=== PATIENT | male | born 1955 | race Native Hawaiian/Other Pacific Islander ===

== ENCOUNTER → 2016-07-14 | Outpatient (CLI) | payer BC ==
--- NOTE | 2016-07-14 09:52 | MRI ---
Study: MRI of the Left Shoulder. Indication: PAIN Technique: Multiplanar, multi sequence MRI of the left shoulder was obtained without intravenous contrast. Comparison: Radiographs October 14, 2015. Findings: Moderate AC joint osteoarthritis with mild contouring underlying supraspinatus muscle belly. Type 1 acromion with mild lateral downsloping. Small volume subacromial/subdeltoid bursal fluid. Irregular full-thickness tearing anterior 2/3 supraspinatus tendon noted with high-grade articular side tearing of the posterior 3rd as well as the anterior half of the infraspinatus tendon at the critical zone. In its entirety the tearing extends over an AP length of 34 mm and a transverse width by approximately 18 mm. Torn tendon fibers are medially retracted by up to 20 mm. Subscapularis tendinosis noted with intermediate-grade bursal/interstitial tearing of the superior leading edge. Teres minor tendon intact. Mild atrophy supraspinatus muscle belly. No fatty infiltration. Long head biceps tendon slightly medially subluxed partially onto the lesser tuberosity superiorly. Intracapsular tendinosis and attenuation without high-grade tear or retraction. Circumferential labral truncation/degeneration. Mild glenohumeral osteoarthritis with a small joint effusion. No acute fracture or osseous contusion. Impression: Irregular full-thickness tearing anterior 2/3 supraspinatus tendon with high-grade articular side tearing of the remainder of the supraspinatus tendon and anterior half infraspinatus tendon. Subscapularis tendinosis with intermediate-grade bursal/interstitial tearing superiorly. Mild atrophy supraspinatus muscle belly. Long head biceps tendinosis with minimal medial subluxation Circumferential labral truncation/degeneration. Mild glenohumeral joint osteoarthritis. Moderate AC joint osteoarthritis. Electronically signed by: Mikel Garcia MD 07/14/2016 09:50
== END ==
LOC: MRI 07:48
PROVIDERS: ATTEND Orthopaedic Surgery
DX: M75.102 Unspecified rotator cuff tear or rupture of left shoulder, not specified as traumatic (principal); M19.012 Primary osteoarthritis, left shoulder; M62.512 Muscle wasting and atrophy, not elsewhere classified, left shoulder

== ENCOUNTER → 2017-01-14 | Outpatient (CLI) | payer BC | END | disposition home or self-care (01) | LOC: GMAB 10:55 | PROVIDERS: ATTEND Family Medicine | DX: Z00.01 Encounter for general adult medical examination with abnormal findings (principal) ==

== ENCOUNTER → 2018-04-13 | Outpatient (CLI) | payer BC | LOC: GMAE 13:52 | PROVIDERS: ATTEND Family Medicine | DX: Z00.01 Encounter for general adult medical examination with abnormal findings (principal) ==

== ENCOUNTER → 2019-04-24 | Outpatient (CLI) | payer BC | LOC: GMAE 10:29 | PROVIDERS: ATTEND Family Medicine | DX: Z00.00 Encounter for general adult medical examination without abnormal findings (principal) ==

== ENCOUNTER 2019-07-28 06:00 | Day surgery (SDC) | payer BC ==
[2019-07-28] MEDS ORDERED: PROPOFOL 200 MG/20 ML VIAL IV ONE (07:00)
[2019-07-28] MEDS ORDERED: LIDOCAINE 1% 10 ML VIAL INJ ONE (07:00)
[2019-07-28] MEDS ORDERED: LACTATED RINGERS 1,000 ML ONE (07:09)
[2019-07-28] MEDS ORDERED: LACTATED RINGERS 1,000 ML IVS ONE (08:43)
[2019-07-28] MEDS ORDERED: MIDAZOLAM INJ 2 MG/2 ML VIAL ONE (09:48)
[2019-07-28] MEDS ORDERED: KETAMINE HCL 100 MG/ML VIAL ONE (09:48)
--- NOTE | 2019-07-28 10:40 | OP ---
DATE OF PROCEDURE: 07/28/19 PREOPERATIVE DIAGNOSIS: 1. History of colonic polyps. POSTOPERATIVE DIAGNOSIS: 1. Single polyp in the rectum. PROCEDURE: 1. Colonoscopy with polypectomy, forceps. SURGEON: Ramírez Singleton MD PROCEDURE IN DETAIL: In lateral position, general anesthesia was induced. Digital rectal exam was normal. The colonoscope was then passed with minimal difficulty to the cecum as identified by the appendiceal orifice and ileocecal valve. Upon careful withdrawal, good examination and good prep, no significant polyps were seen. There was a small likely hyperplastic polyp at 15 cm in the rectum that was excised, two actually right next to each other. These were sent. Otherwise, normal exam. Retroflexion was relatively normal with small hemorrhoids. The patient tolerated the procedure and was taken to Recovery to be discharged. #[id number] [facility]
[2019-07-28 11:59] VITALS: BP 154/82; TEMP 97.7; O2SAT 96
== END 2019-07-28 11:40 | disposition home or self-care (01) ==
LOC: AMB 06:00
PROVIDERS: ATTEND Surgery
DX: Z12.11 Encounter for screening for malignant neoplasm of colon (principal); K62.1 Rectal polyp; I10 Essential (primary) hypertension; Z86.010 Personal history of colon polyps; Z79.899 Other long term (current) drug therapy
CPT/HCPCS: 00812; 45380; J2250; J3490; J7120

== ENCOUNTER → 2020-05-30 | Outpatient (CLI) | payer OTHER | LOC: GMAE 10:52 | PROVIDERS: ATTEND Family Medicine | DX: Z12.5 Encounter for screening for malignant neoplasm of prostate (principal); I10 Essential (primary) hypertension; E78.2 Mixed hyperlipidemia ==